=== PATIENT | female | born 1935 | race Two or more races ===

== ENCOUNTER 2017-11-12 03:55 | Emergency (ER) | payer MEDICARE, OTHER ==
[2017-11-12 05:31] LABS: ADD MAN DIFF? NO
[2017-11-12] MEDS: ONDANSETRON 4 MG INJ IV (05:33)
[2017-11-12] MEDS: morphine 4 MG/ML VIAL IV (05:33)
[2017-11-12 05:35] LABS: WHITE BLOOD COUNT 11.1 10^3/ul (4.8-10.8)
[2017-11-12 05:35] LABS: BASOPHIL # 0.1 10^3/ul (0.0-0.1); BASOPHILS % 0.7 % (0.0-2.0); EOSINOPHILS # 0.1 10^3/ul (0.0-0.5); EOSINOPHILS % 1.3 % (0.0-7.0); HEMATOCRIT 43.1 % (37.0-47.0); HEMOGLOBIN 14.1 g/dl (12.0-16.0); LYMPHOCYTES # 2.2 10^3/ul (0.8-2.9); LYMPHOCYTES % 19.9 % (15.0-51.0); MEAN CORPUSCULAR HEMOGLOBIN 30.7 pg (29.0-33.0); MEAN CORPUSCULAR HGB CONC 32.7 g/dl (32.0-37.0); MEAN CORPUSCULAR VOLUME 93.7 fl (82.0-101.0); MEAN PLATELET VOLUME 10.7 fl (7.4-10.4); MONOCYTES % 8.9 % (0.0-11.0); NEUTROPHIL # 7.7 10^3/ul (1.6-7.5); NEUTROPHILS % 68.8 % (39.0-77.0); PLATELET COUNT 213 10^3/UL (140-415); RED CELL DISTRIBUTION WIDTH 12.1 % (11.5-14.5)
[2017-11-12 05:40] LABS: ADD UMIC YES; UR ASCORBIC ACID NEGATIVE (NEGATIVE); UR BACTERIA FEW /HPF (NONE SEEN); UR BILIRUBIN (Dip) NEGATIVE (NEGATIVE); UR BLOOD (Dip) 1+ mg/dL (NEGATIVE); UR CLARITY CLEAR (CLEAR); UR COLOR YELLOW (YELLOW); UR GLUCOSE (Dip) NEGATIVE (NEGATIVE); UR KETONES (Dip) NEGATIVE (NEGATIVE); UR LEUKOCYTE ESTERASE (Dip) 3+ Leu/ul (NEGATIVE); UR NITRITE (Dip) NEGATIVE (NEGATIVE); UR RBC 1 /HPF (0-5); UR SPECIFIC GRAVITY (Dip) 1.011 (1.003-1.030); UR SQUAMOUS EPITHELIAL CELL FEW /HPF (FEW); UR TOTAL PROTEIN (Dip) NEGATIVE (NEGATIVE); UR UROBILINOGEN (Dip) NEGATIVE (NEGATIVE); UR WBC 16 /HPF (0-5)
[2017-11-12 06:01] LABS: ALANINE AMINOTRANSFERASE 15 IU/L (13-69); ALBUMIN 4.1 g/dl (3.3-4.9); ALBUMIN/GLOBULIN RATIO 1.17; ALKALINE PHOSPHATASE 106 IU/L (42-121); ANION GAP 15 (8-16); ASPARTATE AMINO TRANSFERASE 19 IU/L (15-46); BILIRUBIN,INDIRECT 0.1 mg/dl (0-1.1); BILIRUBIN,TOTAL 0.1 mg/dl (0.2-1.3); BLOOD UREA NITROGEN 15 mg/dl (7-20); CALCIUM 9.6 mg/dl (8.4-10.2); CARBON DIOXIDE 30 mmol/L (21-31); CHLORIDE 106 mmol/L (97-110); CREATININE 0.74 mg/dl (0.44-1.00); GLUCOSE 101 mg/dl (70-220); LIPASE 137 U/L (23-300); POTASSIUM 4.4 mmol/L (3.5-5.1); SODIUM 147 mmol/L (135-144); TOTAL PROTEIN 7.6 g/dl (6.1-8.1)
[2017-11-12 06:10] LABS: PARTIAL THROMBOPLASTIN TIME 28.1 Sec (25.0-35.0); PROTIME 12.2 Sec (11.9-14.9)
== END 2017-11-12 06:13 | disposition home or self-care (01) ==
LOC: E/R 03:55
DX: R10.9 Unspecified abdominal pain (principal)
CPT/HCPCS: 36415; 74176; 80053; 81001; 83690; 85025; 85610; 85730; 96374; 96375; 99285-25

== ENCOUNTER 2018-06-11 10:22 | Inpatient (IN) | payer MEDICARE, OTHER ==
[2018-06-11 11:27] LABS: ADD MAN DIFF? NO
[2018-06-11 11:32] LABS: WHITE BLOOD COUNT 18.4 10^3/ul (4.8-10.8)
[2018-06-11 11:32] LABS: ABNORMAL IP MESSAGE 1; BASOPHIL # 0.1 10^3/ul (0.0-0.1); BASOPHILS % 0.3 % (0.0-2.0); HEMATOCRIT 38.5 % (37.0-47.0); HEMOGLOBIN 12.9 g/dl (12.0-16.0); LYMPHOCYTES % 10.6 % (15.0-51.0); MEAN CORPUSCULAR HEMOGLOBIN 30.2 pg (29.0-33.0); MEAN CORPUSCULAR HGB CONC 33.5 g/dl (32.0-37.0); MEAN CORPUSCULAR VOLUME 90.2 fl (82.0-101.0); MEAN PLATELET VOLUME 10.1 fl (7.4-10.4); MONOCYTE # 1.6 10^3/ul (0.3-0.9); MONOCYTES % 8.5 % (0.0-11.0); NEUTROPHIL # 14.8 10^3/ul (1.6-7.5); NEUTROPHILS % 80.1 % (39.0-77.0); PLATELET COUNT 205 10^3/UL (140-415); POSITIVE DIFF @See below; RED BLOOD COUNT 4.27 10^6/ul (4.20-5.40); RED CELL DISTRIBUTION WIDTH 12.6 % (11.5-14.5)
[2018-06-11 11:52] LABS: URINE PH (Dip) POC 6.5 (5.0-8.5)
[2018-06-11 11:52] LABS: ALANINE AMINOTRANSFERASE 10 IU/L (13-69); ALBUMIN 4.4 g/dl (3.3-4.9); ALBUMIN/GLOBULIN RATIO 1.46; ALKALINE PHOSPHATASE 71 IU/L (42-121); ANION GAP 14 (5-13); ASPARTATE AMINO TRANSFERASE 18 IU/L (15-46); BILIRUBIN,INDIRECT 0.7 mg/dl (0-1.1); BILIRUBIN,TOTAL 0.7 mg/dl (0.2-1.3); BLOOD UREA NITROGEN 15 mg/dl (7-20); CALCIUM 9.4 mg/dl (8.4-10.2); CARBON DIOXIDE 26 mmol/L (21-31); CHLORIDE 100 mmol/L (97-110); CREATININE 0.65 mg/dl (0.44-1.00); GLUCOSE 131 mg/dl (70-220); POTASSIUM 3.8 mmol/L (3.5-5.1); SODIUM 140 mmol/L (135-144); TOTAL PROTEIN 7.4 g/dl (6.1-8.1); URINE BLOOD (Dip) POC 1+ (NEGATIVE); URINE GLUCOSE (Dip) POC Negative (NEGATIVE); URINE KETONES (Dip) POC Negative (NEGATIVE); URINE LEUKOCYTE EST (Dip) POC Trace (NEGATIVE); URINE NITRITE (Dip) POC Negative (NEGATIVE); URINE TOTAL PROTEIN POC 1+ (NEGATIVE)
[2018-06-11 11:54] LABS: PARTIAL THROMBOPLASTIN TIME 30.2 Sec (23.0-35.0); PROTIME 13.3 Sec (11.9-14.9)
[2018-06-11] MEDS: CEFEPIME 2GM/50 ML (PMX) 50 ML IVPB (12:02)
[2018-06-11] MEDS: SODIUM CHLORIDE 0.9% 1L BAG IV* (12:02)
[2018-06-11 12:03] LABS: TROPONIN-I < 0.012 ng/ml (0.000-0.120)
[2018-06-11] MEDS ORDERED: SOD CHLORIDE 0.9% 1,000 ML IV (12:56)
[2018-06-11] MEDS ORDERED: ONDANSETRON 4 MG INJ IV ×2 (13:00→16:30)
[2018-06-11] MEDS ORDERED: ACETAMINOPHEN 325 MG TAB PO ×2 (13:00→16:30)
[2018-06-11] MEDS: VANCOMYCIN 1 GM (PMX) 250 ML IVPB (13:19)
[2018-06-11] MEDS: ACETAMINOPHEN 325 MG TAB PO (14:52)
[2018-06-11] MEDS ORDERED: DOCUSATE SODIUM 100 MG CAP PO (16:30)
[2018-06-11] MEDS ORDERED: HYDROCODONE/APAP (5/325) TAB PO (16:30)
[2018-06-11] MEDS ORDERED: morphine SULFATE/PF (2 MG/2 ML) SYG IV (16:30)
[2018-06-11] MEDS ORDERED: LEVALBUTEROL (NEB) 0.63 MG/3 ML AMP HHN (16:30)
[2018-06-11] MEDS ORDERED: NACL 0.9% 3 ML SYG IV (16:30)
[2018-06-11] MEDS ORDERED: ZOLPIDEM 5 MG TAB PO (16:30)
[2018-06-11] MEDS: SOD CHLORIDE 0.9% 1,000 ML IV (17:17)
[2018-06-11] MEDS: CEFTRIAXONE 1 GM/50 ML (PMX) 50 ML IVPB (17:23)
[2018-06-11] MEDS: IOHEXOL 300MG/ML 150 ML BTL (17:24)
[2018-06-11] MEDS: SOD CHLORIDE 0.9% 100 ML (17:25)
[2018-06-11] MEDS: AZITHROMYCIN 500MG/NS (PMX) 250 ML IVPB (17:52)
[2018-06-12 06:13] LABS: ADD MAN DIFF? NO
[2018-06-12 06:18] LABS: WHITE BLOOD COUNT 10.6 10^3/ul (4.8-10.8)
[2018-06-12 06:18] LABS: BASOPHILS % 0.4 % (0.0-2.0); EOSINOPHILS # 0.1 10^3/ul (0.0-0.5); EOSINOPHILS % 1.3 % (0.0-7.0); HEMATOCRIT 36.3 % (37.0-47.0); HEMOGLOBIN 11.7 g/dl (12.0-16.0); LYMPHOCYTES # 1.5 10^3/ul (0.8-2.9); LYMPHOCYTES % 14.2 % (15.0-51.0); MEAN CORPUSCULAR HEMOGLOBIN 30.6 pg (29.0-33.0); MEAN CORPUSCULAR HGB CONC 32.2 g/dl (32.0-37.0); MEAN PLATELET VOLUME 10.3 fl (7.4-10.4); MONOCYTE # 0.7 10^3/ul (0.3-0.9); MONOCYTES % 6.8 % (0.0-11.0); NEUTROPHIL # 8.1 10^3/ul (1.6-7.5); NEUTROPHILS % 76.8 % (39.0-77.0); PLATELET COUNT 180 10^3/UL (140-415); RED BLOOD COUNT 3.82 10^6/ul (4.20-5.40); RED CELL DISTRIBUTION WIDTH 12.7 % (11.5-14.5)
[2018-06-12 06:34] LABS: HEMOGLOBIN A1C 5.4 % (0-5.9)
[2018-06-12 07:05] LABS: ANION GAP 9 (5-13); BLOOD UREA NITROGEN 12 mg/dl (7-20); CALCIUM 8.7 mg/dl (8.4-10.2); CARBON DIOXIDE 28 mmol/L (21-31); CHLORIDE 107 mmol/L (97-110); CREATININE 0.61 mg/dl (0.44-1.00); GLUCOSE 97 mg/dl (70-220); MAGNESIUM 2.1 mg/dl (1.7-2.5); PHOSPHORUS 2.9 mg/dl (2.5-4.9); POTASSIUM 3.6 mmol/L (3.5-5.1); SODIUM 144 mmol/L (135-144)
[2018-06-12] MEDS: ENOXAPARIN 40 MG/0.4 ML SYG SC (08:11)
[2018-06-12] MEDS: CEFTRIAXONE 1 GM/50 ML (PMX) 50 ML IVPB (16:09)
[2018-06-12] MEDS: AZITHROMYCIN 500MG/NS (PMX) 250 ML IVPB (17:28)
[2018-06-12] MEDS: SOD CHLORIDE 0.9% 1,000 ML IV (17:30)
[2018-06-12] MEDS: GUAIFENESIN 20 MG/ML 5ML CUP PO (21:40)
[2018-06-13] MEDS: GUAIFENESIN 20 MG/ML 5ML CUP PO (08:16)
[2018-06-13] MEDS: ENOXAPARIN 40 MG/0.4 ML SYG SC (08:40)
[2018-06-13] MEDS: PROMETHAZINE/CODEINE 5ML CUP PO (11:37)
[2018-06-13] MEDS: CEFTRIAXONE 1 GM/50 ML (PMX) 50 ML IVPB (16:39)
[2018-06-13] MEDS: SOD CHLORIDE 0.9% 1,000 ML IV (16:40)
[2018-06-13] MEDS: AZITHROMYCIN 500MG/NS (PMX) 250 ML IVPB (17:36)
[2018-06-14] MEDS: ENOXAPARIN 40 MG/0.4 ML SYG SC (08:34)
[2018-06-14] MEDS: INFLUENZA VIRUS VACCINE 0.5 ML (DISPENSING) IM* (08:42)
[2018-06-14] MEDS: PROMETHAZINE/CODEINE 5ML CUP PO (15:28)
[2018-06-14] MEDS: SOD CHLORIDE 0.9% 1,000 ML IV (16:20)
[2018-06-14] MEDS: CEFTRIAXONE 1 GM/50 ML (PMX) 50 ML IVPB (17:22)
[2018-06-14] MEDS: AZITHROMYCIN 500MG/NS (PMX) 250 ML IVPB (17:24)
== END 2018-06-14 18:57 | disposition home or self-care (01) | DRG 871 ==
LOC: E/R 10:22 → PP2 06-13 18:10 → 6WM 12:56
PROC: 3E0234Z Introduction of Serum, Toxoid and Vaccine into Muscle, Percutaneous Approach (ICD-10-PCS; principal; 2018-06-14)
DX: A41.9 Sepsis, unspecified organism (principal); J18.9 Pneumonia, unspecified organism; J44.0 Chronic obstructive pulmonary disease with (acute) lower respiratory infection; J44.1 Chronic obstructive pulmonary disease with (acute) exacerbation; R91.8 Other nonspecific abnormal finding of lung field; J20.9 Acute bronchitis, unspecified; Z23 Encounter for immunization
CPT/HCPCS: 36415; 71045; 71260; 80048; 80053; 81003; 83036; 83605; 83735; 84100; 84484; 85025; 85610; 85730; 87040; 87086; 87400; 90686; 93005; 96374; 99291-25

== ENCOUNTER 2018-06-25 03:51 | Emergency (ER) | payer MEDICARE, OTHER ==
[2018-06-25] MEDS: ALBUTEROL 0.083% (NEB) 2.5 MG/3 ML AMP NEB (05:06)
== END 2018-06-25 06:21 | disposition home or self-care (01) ==
LOC: E/R 03:51
DX: J06.9 Acute upper respiratory infection, unspecified (principal); J40 Bronchitis, not specified as acute or chronic; R40.2252 Coma scale, best verbal response, oriented, at arrival to emergency department; R40.2362 Coma scale, best motor response, obeys commands, at arrival to emergency department; R40.2142 Coma scale, eyes open, spontaneous, at arrival to emergency department
CPT/HCPCS: 71045; 87400; 94664; 99284-25